=== PATIENT | male | born 1990 | race Two or more races ===

== ENCOUNTER 2024-03-07 09:16 | Emergency (ER) | payer MEDICAID, SELFPAY ==
[2024-03-07 09:17] VITALS: BMI 28.1
[2024-03-07 09:31] VITALS: BP 145/84; PULSE 60; RESP 18; TEMP 36.7; O2SAT 100; BMI 28.0
--- NOTE | 2024-03-07 09:38 | XR_ITS ---
Examination: Cervical spine 3 views Technique one AP lateral coned AP odontoid cervical spine 3 views Exam date and time: March 07, 2024 0950 hrs. Indications: Hit in the neck with a tree branch today with neck pain Findings: Adequate alignment cervical vertebral bodies No cervical fracture The odontoid is intact No significant cervical disc narrowing Impression: No cervical fracture
--- NOTE | 2024-03-07 09:38 | XR_ITS ---
Examination: Shoulder,right, 3 views Technique: Shoulder AP internal rotation, AP external rotation, Y view shoulder, 3 views Exam date and time :March 07, 2024 0942 hrs. Indications: Patient hit with a tree branch to the shoulder today, shoulder pain Findings: No shoulder fracture or dislocation 2 mm AC joint separation age indeterminate Impression:: No shoulder fracture or dislocation
[2024-03-07] MEDS: IBUPROFEN TAB 400 MG TABLET 800 MG PO (10:03)
--- NOTE | 2024-03-07 10:33 | PD.EDHEAD ---
ED Head Injury RME/HPI General Chief complaint: Head Injury Stated complaint: HIT IN HEAD WITH BRANCH TODAY Time Seen by Provider: 03/07/24 09:19 Arrival date/time: 03/07/24 09:16 33-year-old male presents to the emergency department complains of right shoulder pain and right-sided neck pain after being hit in the head with a branch today while at home while doing yard work Limitations: no limitations Related Data Previous Rx's ?Medication ?Instructions ?Recorded ibuprofen 600 mg tablet 1 tab PO Q8HR PRN pain #30 tabs 09/03/16 cyclobenzaprine 10 mg tablet 10 mg PO TID PRN muscle spasm 10 03/07/24 days #30 tab-caps ibuprofen 800 mg tablet 800 mg PO TID PRN pain #30 tabs 03/07/24 Allergies Allergy/AdvReac Type Severity Reaction Status Date / Time No Known Allergies Allergy Verified 03/07/24 09:20 Review of Systems Review of Systems Systems Reviewed: All systems reviewed, normal except as documented Constitutional Constitutional: Reports system reviewed and no additional complaints, except as documented, Denies fever(s) and Denies headache(s) Eyes Eyes: Reports system reviewed and no additional complaints, except as documented and Denies blurry vision ENT Ears, Nose, Mouth, and Throat: Reports system reviewed and no additional complaints, except as documented, Denies headache(s), Denies nasal congestion, Denies nasal discharge and Reports neck pain Cardiovascular Cardiovascular: Reports system reviewed and no additional complaints, except as documented, Denies chest pain and Denies dyspnea Respiratory Respiratory: Reports system reviewed and no additional complaints, except as documented, Denies chest congestion, Denies cough and Denies dyspnea Gastrointestinal Gastrointestinal: Reports system reviewed and no additional complaints, except as documented and Denies abdominal pain Musculoskeletal Musculoskeletal: Reports system reviewed and no additional complaints, except as documented, Reports arthralgias (Right-sided shoulder pain) and Reports neck pain Integumentary/Breasts Skin/Breast: Reports system reviewed and no additional complaints, except as documented, Denies rash and Reports wounds (Abrasion scalp) Neurologic Neurologic: Reports system reviewed and no additional complaints, except as documented, Reports as per HPI and Denies headache(s) Past Medical History Social History SMOKING STATUS: Never smoker ED Exam General Limitations: Present no limitations General appearance: Present alert and in no apparent distress Head Head exam: Present other (Abrasion scalp) Eye Eye exam: Present normal appearance, PERRL and EOMI; Absent conjunctival injection ENT ENT exam: Present normal exam, normal oropharynx and mucous membranes moist Neck Neck exam: Present normal inspection, full ROM and trachea midline Chest Chest inspection: Present normal inspection and symmetric chest wall rise Respiratory Respiratory exam: Present normal lung sounds bilaterally; Absent respiratory distress Cardiovascular Cardiovascular exam: Present regular rate, normal rhythm and normal heart sounds Abdominal Exam Abdominal exam: Present soft and normal bowel sounds; Absent distention, tenderness, guarding, rebound or rigidity Extremities Exam Extremities exam: Present normal inspection and full ROM Back Exam Back exam: Present normal inspection, full ROM and tenderness (Right-sided shoulder pain right-sided neck pain) Neurological Exam Neurological exam: Present alert, oriented X3, CN II-XII intact, normal gait and reflexes normal; Absent motor sensory deficit Psychiatric Psychiatric exam: Present normal affect and normal mood Skin Skin exam: Present warm, dry, intact and normal color Course Quality Measures none Orders Category Date Time Status XR cervical spine 2-3V Stat Exams 03/07/24 09:38 Completed XR shoulder RT min 2V Stat Exams 03/07/24 09:38 Completed Ibuprofen Tab [Motrin Tab] Med 03/07/24 09:38 Discontinued 800 mg PO X1 ONE Vital Signs Vital signs: Vital Signs Temperature 98.1 F 03/07/24 09:31 Pulse Rate 60 03/07/24 09:31 Respiratory Rate 18 03/07/24 09:31 Blood Pressure 145/84 H 03/07/24 09:31 Pulse Oximetry (%) 100 03/07/24 09:31 Oxygen Delivery Method Room Air 03/07/24 09:31 O2 saturation 100% room air within normal limits Head Injury MDM Narrative MDM Narrative:: 33-year-old male presents to the emergency department complains of right shoulder pain and right-sided neck pain after being hit in the head with a branch today while at home while doing yard work On exam patient well-appearing patient is not appear ill or toxic and in no acute distress Patient ports no headache or dizziness no weakness patient walks with steady gait no abnormal neurological findings Imaging obtained no acute emergent findings noted There is an age-indeterminate AC separation right shoulder explained to the patient he should have outpatient MRI if his pain persists Patient discharged home in no distress to follow-up with primary care doctor in the next 24 to 48 hours and for any worsening symptoms to return to the ER immediately Patient data External records reviewed:: [facility] previous records Clinical information provided by:: patient Social determinants that could affect healthcare access:: none Patient has the following chronic illnesses:: None How is presenting disease/condition affected by chronic disease/condition?: no chronic disease Evaluation data The following diagnostics were reviewed and interpreted by me:: radiology exam(s) Lab and/or radiology exams considered but not ordered:: Radiology obtained Interpretation Summary: Reviewed by me Medications / Prescriptions Medications or Prescriptions considered but not ordered:: Given Medication administrations:: Medication Administration History Discontinued Medications Ibuprofen (Ibuprofen Tab 400 Mg Tablet) 800 mg PO X1 ONE Stop: 03/07/24 09:39 Last Admin: 03/07/24 10:03 Dose: 800 mg Documented By: RD given Consultations Consultation(s) initiated? (list below): No Diagnosis Differential diagnosis head injury: other (Shoulder sprain, shoulder fracture) Most likely diagnosis given after review of the tests above:: Shoulder sprain Admission Indicated Admission indicated?: not indicated Admission Request Was there a request for admission?: No Disposition Plan Disposition Plan: Discharge Discharge Attestation Discharge Attestation: The patient and all family members were given an opportunity to ask questions and understood the discharge instructions. Discharge instructions specifically effects, indications for sooner follow up or return to the emergency department, and the expected course of current diagnosis. Patient condition: Stable Discharge Plan Plan Patient Disposition: HOME (Self Care) Disposition Comment: Stable Prescriptions/Referrals Prescriptions/Med Rec: New cyclobenzaprine 10 mg tablet 10 mg PO TID PRN (Reason: muscle spasm) 10 Days Qty: 30 0RF ibuprofen 800 mg tablet 800 mg PO TID PRN (Reason: pain) Qty: 30 0RF No Action ibuprofen 600 MG tablet 1 tab PO Q8HR PRN (Reason: pain) Qty: 30 0RF Referrals: Tj Car MD [Primary Care Provider] - 03/09/24 Problem List Clinical Impression: Arthralgia of right shoulder region, AC separation Patient/Caregiver Discharge Instructions Education Materials: ED Arthralgia Additional Instructions: Please follow up with your primary care doctor in the next 24-48hrs for any worsening symptoms return here immediately Print Language: Palestinian Stand Alone Forms: Adelaida Award Info., Patient Portal Info Letter PA/DORIAN Supervising Physician PA/DORIAN Supervising Physician: Dr. Worthington
== END 2024-03-07 10:56 | disposition home or self-care (01) ==
PROVIDERS: Emergency Provider Emergency Medicine; PCP Family Medicine
DX: S43.101A Unspecified dislocation of right acromioclavicular joint, initial encounter (principal); W22.8XXA Striking against or struck by other objects, initial encounter; M54.2 Cervicalgia
CPT/HCPCS: 72040; 73030; 99283; A9270